=== PATIENT | female | born 1980 | race Two or more races ===

== ENCOUNTER 2018-01-02 01:37 | Emergency (ER) | payer BC ==
[2018-01-02 01:54] VITALS: BP 132/91
[2018-01-02] MEDS ORDERED: PENICILLIN G BENZATHINE 1.2 MILLION UNIT/2 ML DISP.SYRIN IM ONE (03:09)
[2018-01-02] MEDS ORDERED: DEXAMETHASONE SOD PHOS INJ 10 MG/1 ML VIAL IM ONE (03:09)
[2018-01-02] MEDS ORDERED: ACETAMINOPHEN 325 MG TABLET PO ONE (03:11)
--- NOTE | 2018-01-02 03:17 | ER Document Report ---
HPI - HPI Patient complains to provider of: Sore throat Pain Level: 5 Context: Patient is a 37-year-old female that comes emergency department for chief complaint of sore throat, fever, and pain along the front of her neck for the past 2 days. She denies vomiting, difficulty breathing. She denies any daily medications, LMP within the past month, denies any medical history. - CONSTITUTIONAL Constitutional: REPORTS: Fever - low grade at home, Chills - EENT EENT: REPORTS: Sore Throat. DENIES: Ear Pain, Eye problems - NEURO Neurology: REPORTS: Headache. DENIES: Weakness, Vision blurred, Dizzinesss / Vertigo - CARDIOVASCULAR Cardiovascular: DENIES: Chest pain - RESPIRATORY Respiratory: DENIES: Trouble Breathing, Coughing - GASTROINTESTINAL Gastrointestinal: DENIES: Abdominal Pain, Black / Bloody Stools - URINARY Urinary: DENIES: Dysuria, Urgency, Frequency - REPRODUCTIVE Reproductive: DENIES: :, Postmenopausal, Abnormal bleeding / discharge - MUSCULOSKELETAL Musculoskeletal: DENIES: Extremity pain Past Medical History - General Information source: Patient - Social History Smoking Status: Never Smoker Chew tobacco use (# tins/day): No Frequency of alcohol use: None Drug Abuse: None Lives with: Family Family History: Reviewed & Not Pertinent Patient has suicidal ideation: No Patient has homicidal ideation: No Renal/ Medical History: Denies: Hx Peritoneal Dialysis Surgical Hx: Negative - Immunizations Immunizations up to date: Yes Hx Diphtheria, Pertussis, Tetanus Vaccination: Yes Hx Pneumococcal Vaccination: 09/06/04 Vertical Provider Document - CONSTITUTIONAL General Appearance: WD/WN, No Apparent Distress - INFECTION CONTROL TRAVEL OUTSIDE OF THE [place] IN LAST 30 DAYS: No - HEENT HEENT: negative: Normal ENT Exam - Erythematous pharynx with no obvious exudates or swelling, otherwise unremarkable ENT exam with normal uvula and no evidence of abscess or airway compromise - NECK Neck: Lymphadenopathy-Left, Lymphadenopathy-Right. negative: Normal Inspection - Anterior cervical adenopathy but no evidence of submandibular swelling - RESPIRATORY Respiratory: Breath Sounds Normal, No Respiratory Distress - CARDIOVASCULAR Cardiovascular: Regular Rate, Regular Rhythm - GI/ABDOMEN Gastrointestinal: Abdomen Soft, Abdomen Non-Tender - MUSCULOSKELETAL/EXTREMETIES Musculoskeletal/Extremeties: MAEW, FROM, Non-Tender - NEURO Level of Consciousness: Awake, Alert, Appropriate Motor/Sensory: No Motor Deficit, No Sensory Deficit Course - Re-evaluation Re-evalutation: Examination consistent with strep pharyngitis, strep test is positive. Treated with penicillin G and dexamethasone. Discussed follow-up and return precautions. Patient states satisfaction and agreement. - Vital Signs Vital signs: Temp Pulse Resp BP Pulse Ox 100.3 F 111 H 20 132/91 H 96 01/02/18 01:53 01/02/18 01:53 01/02/18 01:53 01/02/18 01:53 01/02/18 01:53 Discharge - Discharge Clinical Impression: Strep pharyngitis, Lymphadenopathy Fever Qualifiers: Fever type: unspecified Qualified Code(s): R50.9 - Fever, unspecified Condition: Stable Disposition: HOME, SELF-CARE Additional Instructions: You have strep pharyngitis. You have been treated for this. You can take Tylenol or ibuprofen if needed for pain over the next couple of days, drink plenty of fluids and rest. Follow-up with primary care. Return for any concerning symptoms including worsening pain, swelling, difficulty swallowing or breathing, or any other concerning or worsening symptoms. Forms: Return to Work
== END 2018-01-02 03:41 | disposition home or self-care (01) ==
LOC: ER 01:37
DX: J02.0 Streptococcal pharyngitis (principal); R59.1 Generalized enlarged lymph nodes; R50.9 Fever, unspecified; M54.2 Cervicalgia; R51 Headache
CPT/HCPCS: 99283; 96372; 87880; J0561; J1100

== ENCOUNTER → 2018-03-26 | Outpatient (CLI) | payer BC ==
[2018-03-26 08:58] LABS: ABSOLUTE EOSINOPHILS # (AUTO) 0.1 10^3/uL (0.0-0.6); ABSOLUTE LYMPHOCYTES (AUTO) 1.6 10^3/uL (0.5-4.7); ABSOLUTE MONOCYTES (AUTO) 0.2 10^3/uL (0.1-1.4); ABSOLUTE NEUT (AUTO) 5.3 10^3/uL (1.7-8.2); BASOPHILS % (AUTO) 0.6 % (0-2); HEMATOCRIT 42.3 % (36.0-47.0); HEMOGLOBIN 14.5 g/dL (12.0-15.5); LYMPHOCYTES % (AUTO) 22.3 % (13-45); MEAN CORPUSCULAR HEMOGLOBIN 29.6 pg (27.0-33.4); MEAN CORPUSCULAR HGB CONC 34.3 g/dL (32.0-36.0); MEAN CORPUSCULAR VOLUME 86 fl (80-97); MONOCYTES % (AUTO) 3.4 % (3-13); PLATELET COUNT 237 10^3/uL (150-450); RED BLOOD COUNT 4.91 10^6/uL (3.72-5.28); SEGMENTED NEUTROPHILS % (AUTO) 72.7 % (42-78); TOTAL CELLS COUNTED % (AUTO) 100 %; WHITE BLOOD COUNT 7.3 10^3/uL (4.0-10.5)
[2018-03-26 09:02] LABS: APPEARANCE,URINE CLOUDY; BILIRUBIN,URINE NEGATIVE (NEGATIVE); COLOR,URINE YELLOW; GLUCOSE, URINE NEGATIVE (NEGATIVE); KETONES,URINE NEGATIVE (NEGATIVE); LEUKOCYTE ESTERASE,URINE LARGE (NEGATIVE); NITRITE,URINE NEGATIVE (NEGATIVE); PROTEIN,URINE NEGATIVE (NEGATIVE); URINE SPECIFIC GRAVITY 1.024; UROBILINOGEN,URINE NEGATIVE mg/dL (<2.0)
[2018-03-26 09:21] LABS: ALANINE AMINOTRANSFERASE 56 U/L (9-52); ALBUMIN 3.9 g/dL (3.5-5.0); ALKALINE PHOSPHATASE 73 U/L (38-126); ANION GAP 10 (5-19); ASPARTATE AMINO TRANSFERASE 25 U/L (14-36); BILIRUBIN,DIRECT 0.2 mg/dL (0.0-0.4); BILIRUBIN,TOTAL 0.5 mg/dL (0.2-1.3); BLOOD UREA NITROGEN 14 mg/dL (7-20); CALCIUM 9.3 mg/dL (8.4-10.2); CARBON DIOXIDE 25 mmol/L (22-30); CHLORIDE 108 mmol/L (98-107); GLUCOSE 84 mg/dL (75-110); POTASSIUM 4.3 mmol/L (3.6-5.0); SODIUM 143.3 mmol/L (137-145); TOTAL PROTEIN 7.3 g/dL (6.3-8.2)
[2018-03-27 07:38] LABS: CREATININE URINE 258.9 mg/dL (Not Estab.); MICROALBUMIN URINE 28.1 ug/mL (Not Estab.)
== END ==
LOC: OD 08:21
PROVIDERS: ATTEND Internal Medicine
DX: R35.8 Other polyuria (principal); R42 Dizziness and giddiness
CPT/HCPCS: 36415; 80053; 81001; 82043; 82570; 83036; 84436; 84443; 84550; 84702; 85025

== ENCOUNTER 2019-08-06 19:52 | Emergency (ER) | payer BC ==
[2019-08-06] MEDS ORDERED: ACETAMINOPHEN 325 MG TABLET PO ONE (20:26)
[2019-08-06] MEDS ORDERED: NORMAL SALINE 1000 ML 1,000 ML IV ONE (20:26)
[2019-08-06] MEDS ORDERED: ONDANSETRON HCL INJ/PF 4 MG/2 ML SDV IV ONE (20:26)
--- NOTE | 2019-08-06 20:27 | ER Document Report ---
ED Medical Screen (RME) - General Chief Complaint: Headache Stated Complaint: HEADACHE,VOMITING Time Seen by Provider: 08/06/19 20:25 Primary Care Provider: LORAINE SABILLON MD [Primary Care Provider] - Follow up as needed Information source: Patient Notes: Patient presents complaining of severe headache that started suddenly around 6 PM. Patient states that headache is in the frontal area. Patient denies any history of headaches, any fever or head injury. Patient does report nausea and vomiting x2 episodes. Patient drove herself here this evening. Patient took Motrin at home without relief of her symptoms. I have greeted and performed a rapid initial assessment of this patient. A comprehensive ED assessment and evaluation of the patient, analysis of test results and completion of the medical decision making process will be conducted by additional ED providers. TRAVEL OUTSIDE OF THE [place] IN LAST 30 DAYS: No - Related Data Allergies/Adverse Reactions: Tropical Fruit Flavor * [Tropical Fruit Flavor] Allergy (Verified 01/02/18 02:20) Past Medical History Renal/ Medical History: Denies: Hx Peritoneal Dialysis - Immunizations Immunizations up to date: Yes Hx Diphtheria, Pertussis, Tetanus Vaccination: Yes Physical Exam - Vital signs Vitals: Temp Pulse Resp BP Pulse Ox 98.1 F 88 16 143/108 H 98 08/06/19 20:05 08/06/19 20:05 08/06/19 20:05 08/06/19 20:05 08/06/19 20:05 - Neurological Neuro grossly intact: Yes Cognition: Normal Holt Coma Scale Eye Opening: Spontaneous [place] Coma Scale Verbal: Oriented Holt Coma Scale Motor: Obeys Commands Holt Coma Scale Total: 15 Course - Vital Signs Vital signs: Temp Pulse Resp BP Pulse Ox 98.1 F 88 16 143/108 H 98 08/06/19 20:05 08/06/19 20:05 08/06/19 20:05 08/06/19 20:05 08/06/19 20:05 Doctor's Discharge - Discharge Referrals: LORAINE SABILLON MD [Primary Care Provider] - Follow up as needed
--- NOTE | 2019-08-06 22:16 | RADIOLOGY REPORT (SQ) ---
EXAM DESCRIPTION: CT HEAD WITHOUT IV CONTRAST COMPLETED DATE/TME: 08/06/2019 20:26 CLINICAL HISTORY: 39 years, Female, [place] COMPARISON: MRI brain 04/24/2015 TECHNIQUE: 193 Images stored on PACS. All CT scanners at this facility use dose modulation, iterative reconstruction, and/or weight based dosing when appropriate to reduce radiation dose to as low as reasonably achievable (ALARA). [facility]: Dose Right [facility]: CareDose [facility]: Dose Right [facility]: Teradose 4D [facility]: [employer] LIMITATIONS: None. FINDINGS: The globes are intact. Minor mucosal thickening of the ethmoid air cells. No displaced or depressed skull fracture. No intra or extra-axial hemorrhage. CT is limited for evaluation of acute infarct. No CT evidence for large or territorial acute infarct. No mass or midline shift IMPRESSION: No acute intracranial abnormality TECHNICAL DOCUMENTATION: Quality ID # [id number]: Final reports with documentation of one or more dose reduction techniques (e.g., Automated exposure control, adjustment of the mA and/or kV according to patient size, use of iterative reconstruction technique) copyright 2011 [employer]- All Rights Reserved
[2019-08-06] MEDS ORDERED: DIPHENHYDRAMINE HCL 50 MG/ML VIAL IV ONE (22:23)
[2019-08-06] MEDS ORDERED: KETOROLAC TROMETHAMINE INJ/PF 30 MG/1 ML SDV IV ONE (22:23)
--- NOTE | 2019-08-06 23:48 | ER Document Report ---
HPI - HPI Time Seen by Provider: 08/06/19 20:25 Pain Level: 5 Notes: Patient presents complaining of severe headache that started suddenly around 6 PM. Patient states that headache is in the frontal area. Patient denies any history of headaches, any fever or head injury. Patient does report nausea and vomiting x2 episodes. Patient drove herself here this evening. Patient took Motrin at home without relief of her symptoms. - CONSTITUTIONAL Constitutional: DENIES: Fever, Chills - NEURO Neurology: REPORTS: Headache - REPRODUCTIVE Reproductive: DENIES: : Past Medical History - General Information source: Patient - Social History Smoking Status: Never Smoker Family History: Reviewed & Not Pertinent Patient has suicidal ideation: No Patient has homicidal ideation: No - Medical History Medical History: Negative Renal/ Medical History: Denies: Hx Peritoneal Dialysis Surgical Hx: Negative - Immunizations Immunizations up to date: Yes Hx Diphtheria, Pertussis, Tetanus Vaccination: Yes Hx Pneumococcal Vaccination: 09/06/04 Vertical Provider Document - CONSTITUTIONAL Notes: PHYSICAL EXAMINATION: GENERAL: Well-appearing, well-nourished and in no acute distress. HEAD: Atraumatic, normocephalic. EYES: Pupils equal round extraocular movements intact, conjunctiva are normal. ENT: Nares patent NECK: Normal range of motion LUNGS: No respiratory distress Musculoskeletal: Normal range of motion NEUROLOGICAL: Face symmetric. Tongue protrudes midline. Extraocular motions intact. Pupils are 2 mm and equally reactive. Normal speech, normal gait. 5 out of 5 strength in both the distal and proximal upper and lower extremities bilaterally. Sensation is grossly intact throughout. Finger to nose testing normal. Pronator drift normal. PSYCH: Normal mood, normal affect. SKIN: Warm, Dry, normal turgor, no rashes or lesions noted. - INFECTION CONTROL TRAVEL OUTSIDE OF THE [place] IN LAST 30 DAYS: No Course - Re-evaluation Re-evalutation: Patient initially seen by provider in triage who started her work-up. I did add on some orders for medications while the nurse was starting treatment. Patient's headache was completely resolved after administration of medications here in the emergency department. The CT ordered by triage provider was negative for any acute intracranial abnormality. Patient will be discharged home in stable condition at this time. Encourage follow-up with PCP. The patient's emergency department workup and current diagnosis were explained to the patient and or family. Follow-up instructions were provided. Medications if prescribed were discussed. Instructions for when to return to the emergency department including specific worrisome symptoms were discussed with the patient and/or family. - Vital Signs Vital signs: Temp Pulse Resp BP Pulse Ox 98.1 F 88 16 143/108 H 98 08/06/19 20:05 08/06/19 20:05 08/06/19 20:05 08/06/19 20:05 08/06/19 20:05 Discharge - Discharge Clinical Impression: Migraine headache Qualifiers: Migraine type: unspecified Status migrainosus presence: without status migrainosus Intractability: not intractable Qualified Code(s): G43.909 - Migraine, unspecified, not intractable, without status migrainosus Condition: Stable Disposition: HOME, SELF-CARE Additional Instructions: You were seen today for a migraine headache. Please follow-up with your primary care doctor regarding today's ED visit. Return to emergency department immediately if you develop a headache that gets to its maximum severity within 20 minutes of onset, you pass out, you develop weakness, numbness, changes in your vision, become unable to keep any fluids down for more than 12 hours, or develop a fever greater than 100.4 degrees Fahrenheit. If you develop a similar migraine headache in the future I recommend that you immediately take 600 mg of ibuprofen and 50 mg of Benadryl and go to sleep as quickly as possible. This can often prevent your migraine headache from becoming severe. Prescriptions: Promethazine HCl [Phenergan 25 mg Tablet] 1 - 2 tab PO Q6H PRN #15 tablet PRN Reason: Forms: Return to Work Referrals: LORAINE SABILLON MD [ACTIVE STAFF] - Follow up as needed
[2019-08-06 23:58] VITALS: BP 136/92
== END 2019-08-06 23:58 | disposition home or self-care (01) ==
LOC: ER 19:52
DX: G43.909 Migraine, unspecified, not intractable, without status migrainosus (principal); R11.2 Nausea with vomiting, unspecified
CPT/HCPCS: 99284; 96361; 96374; 96375; 70450; J1200; J1885; J2405; J7030

== ENCOUNTER 2020-07-24 10:55 | Emergency (ER) | payer BC ==
--- NOTE | 2020-07-24 11:33 | ER Document Report ---
ED Medical Screen (RME) - General Chief Complaint: Leg Pain Stated Complaint: HEADACHE,LEG NUMBNESS Time Seen by Provider: 07/24/20 11:26 Mode of Arrival: Ambulatory Information source: Patient Notes: 40-year-old female patient presenting to the emergency department today with multiple complaints. Patient reports she has a history of migraines, started having a headache yesterday, it came on gradually and has associated nausea, photophobia and phonophobia. She also reports generalized malaise, fever, chills, dry cough, body aches. She went to urgent care where they found her to be hypertensive. She denies any history of hypertension. 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 Patient has her sweater pulled over her head during the interview, answering questions appropriately, does ambulate with a steady gait although she states that she is unable to walk. I have greeted and performed a rapid initial assessment of this patient. A comprehensive ED assessment and evaluation of the patient, analysis of test results and completion of the medical decision making process will be conducted by additional ED providers. I have specifically instructed the patient or family members with the patient to immediately return to any nursing staff should anything change in the patient's condition or with their chief complaint. TRAVEL OUTSIDE OF THE [place] IN LAST 30 DAYS: No - Related Data Allergies/Adverse Reactions: No Known Drug Allergies Allergy (Verified 07/24/20 11:25) Tropical Fruit Flavor * [Tropical Fruit Flavor] Allergy (Verified 07/24/20 11:25) Past Medical History Renal/ Medical History: Denies: Hx Peritoneal Dialysis - Immunizations Immunizations up to date: Yes Hx Diphtheria, Pertussis, Tetanus Vaccination: Yes Physical Exam - Vital signs Vitals: Temp Pulse Resp BP Pulse Ox 99.3 F 102 H 20 168/107 H 100 07/24/20 11:00 07/24/20 11:00 07/24/20 11:00 07/24/20 11:00 07/24/20 11:00 Course - Vital Signs Vital signs: Temp Pulse Resp BP Pulse Ox 99.3 F 102 H 20 168/107 H 100 07/24/20 11:00 07/24/20 11:07/24/20 11:00 07/24/20 11:00 07/24/20 11:00
--- NOTE | 2020-07-24 13:29 | ER Document Report ---
ED General - General Chief Complaint: Headache Stated Complaint: HEADACHE,LEG NUMBNESS Time Seen by Provider: 07/24/20 11:26 Mode of Arrival: Ambulatory TRAVEL OUTSIDE OF THE [place] IN LAST 30 DAYS: No - HPI Notes: 40-year-old female presents with a headache. Patient states that she developed a headache at 715 last night while she was watching TV. Headache is located in both of her temples, it is throbbing. She states that the pain has progressively worsened since last night and throughout today. She states that she was up every hour last night and could not sleep. She took her vertigo medication for symptoms but did not change the pain. She reports she does have a history of migraines but this 1 is really throbbing. She has had some nausea, no vomiting. She reports that her throat is dry, feels like a tickle. No cough, shortness of breath or fever. She also states that intermittently her legs will tingle as if they are asleep, she has been ambulatory throughout the day without issue, no back pain. - Related Data Allergies/Adverse Reactions: No Known Drug Allergies Allergy (Verified 07/24/20 11:25) Tropical Fruit Flavor * [Tropical Fruit Flavor] Allergy (Verified 07/24/20 11:25) Past Medical History - General Information source: Patient - Social History Smoking Status: Never Smoker Chew tobacco use (# tins/day): No Frequency of alcohol use: None Drug Abuse: None Family History: Reviewed & Not Pertinent Renal/ Medical History: Denies: Hx Peritoneal Dialysis - Immunizations Immunizations up to date: Yes Hx Diphtheria, Pertussis, Tetanus Vaccination: Yes Hx Pneumococcal Vaccination: 09/06/04 Review of Systems - Review of Systems Constitutional: denies: Fever EENT: Other - Light sensitivity Cardiovascular: denies: Chest pain Respiratory: denies: Cough, Short of breath Gastrointestinal: Nausea. denies: Abdominal pain, Vomiting Genitourinary: No symptoms reported Female Genitourinary: No symptoms reported Musculoskeletal: denies: Back pain, Muscle pain Skin: No symptoms reported Hematologic/Lymphatic: No symptoms reported Neurological/Psychological: See HPI Physical Exam - Vital signs Vitals: Temp Pulse Resp BP Pulse Ox 99.3 F 102 H 20 168/107 H 100 07/24/20 11:00 07/24/20 11:00 07/24/20 11:00 07/24/20 11:00 07/24/20 11:00 - General General appearance: Appears well, Alert In distress: None - HEENT Head: Normocephalic, Atraumatic Extraocular movements intact: Yes Pupils: PERRL Mucous membranes: Moist Neck: Supple - Respiratory Breath sounds: Normal - Cardiovascular Rhythm: Regular Heart sounds: Normal auscultation - Abdominal Inspection: Obese Tenderness: Nontender - Extremities General upper extremity: Normal ROM General lower extremity: Normal ROM. No: Edema - Neurological Neuro grossly intact: Yes Cognition: Normal Orientation: AAOx4 Notes: Face is symmetric and speech is clear, pupils equal reactive, tongue protrudes midline, cranial nerves II through XII grossly intact Strength is 5/5 in the upper extremities, sensation intact Strength is 5/5 in the lower extremities, sensation intact Coordination intact - Psychological Associated symptoms: Normal affect - Skin Skin Temperature: Warm Course - Re-evaluation Re-evalutation: 40-year-old female with progressively worsening bitemporal headache onset last night. Has a history of migraines, reporting some light sensitivity as well. On exam she does not have any gross focal neuro deficits. She has been ambulatory and has intact motor/sensation to her lower legs as well as no midline spinal tenderness. She is afebrile and does not voice any other URI- like symptoms aside from a scratchy throat. Suspect she is having migraine headache, possible she is at the beginning of a viral illness, would not suspect acute intracranial abnormality at this time. Will start with Compazine and Benadryl, reassess. 07/24/20 16:56 Into check on patient, she reports her headache has improved 07/24/20 17:08 Patient's ride has arrived. Stable at time of discharge. Precautions provided. - Vital Signs Vital signs: Temp Pulse Resp BP Pulse Ox 99.3 F 102 H 20 164/92 H 100 07/24/20 11:00 07/24/20 11:00 07/24/20 11:00 07/24/20 12:00 07/24/20 11:00 Discharge - Discharge Clinical Impression: Migraine headache without aura Qualifiers: Status migrainosus presence: without status migrainosus Intractability: not intractable Qualified Code(s): G43.009 - Migraine without aura, not intractable, without status migrainosus Disposition: HOME, SELF-CARE Instructions: Headache ([facility]) Additional Instructions: Return to the emergency department for any concerning worsening symptoms.
[2020-07-24] MEDS ORDERED: ONDANSETRON HCL INJ/PF 4 MG/2 ML SDV IV ONE (13:36)
[2020-07-24] MEDS ORDERED: PROCHLORPERAZINE EDISYLATE INJ 10 MG/2 ML VIAL IV ONE (13:36)
[2020-07-24] MEDS ORDERED: DIPHENHYDRAMINE HCL 50 MG/ML VIAL IV ONE (13:36)
[2020-07-24] MEDS ORDERED: NORMAL SALINE 1000 ML 1,000 ML IV ONE (13:37)
--- NOTE | 2020-07-24 14:32 | RADIOLOGY REPORT (SQ) ---
EXAM DESCRIPTION: CHEST SINGLE VIEW IMAGES COMPLETED DATE/TIME: 07/24/2020 2:14 pm REASON FOR STUDY: htn COMPARISON: None. EXAM PARAMETERS: NUMBER OF VIEWS: One view. TECHNIQUE: Single frontal radiographic view of the chest acquired. RADIATION DOSE: NA LIMITATIONS: None. FINDINGS: LUNGS AND PLEURA: No opacities, masses or pneumothorax. No pleural effusion. MEDIASTINUM AND HILAR STRUCTURES: No masses. Contour normal. HEART AND VASCULAR STRUCTURES: Heart normal in size. Normal vasculature. BONES: No acute findings. HARDWARE: None in the chest. OTHER: No other significant finding. IMPRESSION: NO ACUTE RADIOGRAPHIC FINDING IN THE CHEST. TECHNICAL DOCUMENTATION: JOB ID: [id number] 2010 [employer]- All Rights Reserved Reading location - IP/workstation name: [email or web address]
[2020-07-24 17:29] VITALS: BP 144/90
== END 2020-07-24 17:28 | disposition home or self-care (01) ==
LOC: ER 10:55
DX: G43.009 Migraine without aura, not intractable, without status migrainosus (principal); R11.0 Nausea; H53.149 Visual discomfort, unspecified; J39.2 Other diseases of pharynx; R09.89 Other specified symptoms and signs involving the circulatory and respiratory systems; R20.2 Paresthesia of skin; Z91.018 Allergy to other foods
CPT/HCPCS: 99284; 96361; 96374; 96375; 71045; J1200; J0780; J2405; J7030